=== PATIENT | female | born 1960 | race Caucasian/White ===

== ENCOUNTER → 2017-04-07 | Outpatient (CLI) | payer OTHER, BC | LOC: MAMO 07:27 | DX: Z12.31 Encounter for screening mammogram for malignant neoplasm of breast (principal); Z78.0 Asymptomatic menopausal state | CPT/HCPCS: G0202 ==

== ENCOUNTER 2017-04-08 02:55 | Emergency (ER) | payer BC, OTHER ==
[2017-04-08 06:41] LABS: HEMOGLOBIN 10.7 gm/dl (12.3-15.3); RED BLOOD COUNT 4.53 M/UL (4.00-5.10); WHITE BLOOD COUNT 10.8 K/UL (4.5-11.0)
[2017-04-08 07:00] LABS: BUN/CREATININE RATIO 14 (0-10)
== END 2017-04-08 09:07 | disposition home or self-care (01) ==
LOC: ER1 02:55
PROVIDERS: Physician Assistant
DX: N39.0 Urinary tract infection, site not specified (principal); R31.9 Hematuria, unspecified; R10.817 Generalized abdominal tenderness; D64.9 Anemia, unspecified; K21.9 Gastro-esophageal reflux disease without esophagitis; I10 Essential (primary) hypertension; Z88.1 Allergy status to other antibiotic agents; Z79.899 Other long term (current) drug therapy
CPT/HCPCS: 36415; 80053; 81001; 83690; 85025; 96361; 96374; 96375; 99284; J1885; J2765

== ENCOUNTER 2021-06-25 09:00 | Emergency (ER) | payer OTHER ==
[~2021-06-25] VITALS: Ht 154.9 cm; Wt 73.5 kg
[~2021-06-25 09:00] MED LIST: CLEOCIN HCL150 MG PO; DOXYCYCLINE MO100 MG PO; FLOMAX 0.4 MG0.4 MG PO; LISINOPRIL-HCT1 EACH PO; MEDROL4 MG PO; NORCO 7.5-3251 EACH PO; OXYCODON-ACETA1 EAC1 PO; PERCOCET 5-3251 EACH PO; PHENERGAN 25 MG25 M1 PO; PREDNISONE20 MG PO; PROTONIX40 MG PO; PROVENTIL HFA6.7 GM INH; REGLAN 10 MG TA10 MG PO; TESSALON PERLE100 MG PO; WELLBUTRIN SR150 M1 PO; ZITHROMAX250 MG PO; ZOFRAN ODT 4 MG4 MG PO
[2021-06-25 11:05] LABS: HEMOGLOBIN 12.5 gm/dl (12.3-15.3); RED BLOOD COUNT 4.23 M/UL (4.00-5.10); WHITE BLOOD COUNT 4.4 K/UL (4.5-11.0)
[2021-06-25 11:30] LABS: BUN/CREATININE RATIO 10 (0-10)
[2021-06-25] MEDS ORDERED: DELSYM30 MG/5 ML PO (13:35)
== END 2021-06-25 16:00 | disposition home or self-care (01) ==
LOC: ER1 09:00
PROVIDERS: Physician Assistant Medical
DX: Z23 Encounter for immunization (principal); U07.1 COVID-19; J12.82 Pneumonia due to coronavirus disease 2019; I10 Essential (primary) hypertension; Z90.49 Acquired absence of other specified parts of digestive tract; Z88.1 Allergy status to other antibiotic agents; Z79.899 Other long term (current) drug therapy
CPT/HCPCS: 71045; 80053; 83605; 85025; 87040; 93005; 99285; M0243; U0002

== ENCOUNTER → 2022-02-05 | Outpatient (CLI) | payer OTHER ==
[~2022-02-05] MED LIST changes: +DELSYM30 MG/5 ML PO
== END ==
LOC: KOH-I 10:47 → RAD 10:47
DX: M54.6 Pain in thoracic spine (principal); M47.26 Other spondylosis with radiculopathy, lumbar region; M54.40 Lumbago with sciatica, unspecified side; M47.814 Spondylosis without myelopathy or radiculopathy, thoracic region; M85.88 Other specified disorders of bone density and structure, other site
CPT/HCPCS: 72072; 72100

== ENCOUNTER 2022-04-01 09:41 | Emergency (ER) | payer OTHER ==
[2022-04-01 10:19] LABS: RED BLOOD COUNT 4.6 M/UL (4.00-5.10); WHITE BLOOD COUNT 13.1 K/UL (4.5-11.0)
[2022-04-01 11:01] LABS: BUN/CREATININE RATIO 18 (0-10)
== END 2022-04-01 13:19 | disposition home or self-care (01) ==
LOC: ER1 09:41
PROVIDERS: Physician Assistant
DX: E86.0 Dehydration (principal); E87.6 Hypokalemia; R19.7 Diarrhea, unspecified; I10 Essential (primary) hypertension; Z88.1 Allergy status to other antibiotic agents; Z79.899 Other long term (current) drug therapy
CPT/HCPCS: 80053; 81001; 83605; 83690; 85025; 87086; 96374; 99284; J2405